=== PATIENT | female | born 1980 | race Caucasian/White ===

== ENCOUNTER 2024-07-10 16:00 | Emergency (ER) | payer SELFPAY ==
[~2024-07-10] VITALS: Ht 162.6 cm; Wt 159.1 kg
[~2024-07-10 16:00] MED LIST: NORCO 325 MG-51 TAB PO; PEN-VEE K500 MG PO; TRAZADONE HYDR100 MG
[2024-07-10 16:07] VITALS: BP 152/90
[2024-07-10] MEDS ORDERED: tiZANidine 4 MG TABLET PO ONE (16:30)
[2024-07-10] MEDS ORDERED: TIZANIDINE HYDRO4 MG PO (16:47)
== END 2024-07-10 17:13 | disposition home or self-care (01) ==
LOC: ED 16:00
DX: S99.911A Unspecified injury of right ankle, initial encounter (principal); E66.01 Morbid (severe) obesity due to excess calories; X50.1XXA Overexertion from prolonged static or awkward postures, initial encounter; Y92.512 Supermarket, store or market as the place of occurrence of the external cause
CPT/HCPCS: L4386